=== PATIENT | female | born 1960 | race African-American/Black ===

== ENCOUNTER 2017-12-02 15:28 | Emergency (ER) | payer MEDICARE, MEDICAID ==
[~2017-12-02] VITALS: Ht 172.7 cm; Wt 81.0 kg
[2017-12-02] MEDS ORDERED: HALO5AMP3 IJ (15:37)
[2017-12-02] MEDS ORDERED: BENZ1TAB7 PO (15:37)
[2017-12-03 08:39] LABS: BASOPHILS % 0.5 % (0.0-2.0); EOSINOPHILS % 1.6 % (0.0-5.0); HEMATOCRIT. 40.8 % (36.0-48.0); HEMOGLOBIN. 13.2 g/dL (12.0-16.0); MEAN CORPUSCULAR HEMOGLOBIN 28.3 pg (28.0-32.0); MEAN CORPUSCULAR VOLUME 87.3 fL (81.0-99.0); MEAN PLATELET VOLUME 9.5 fl (7.4-10.4); MONOCYTES % 10.6 % (2.0-8.0); NEUTROPHILS % 68.3 % (40.0-76.0); PLATELET 248 x1000/uL (130-400); RED BLOOD CELL COUNT 4.67 mill/uL (4.2-5.4); RED CELL DISTRIBUTION WIDTH 14.8 % (11.6-14.6)
[2017-12-03 08:43] LABS: CHLORIDE 105 mEq/L (98-107)
[2017-12-03 08:46] LABS: CLARITY URINE CLEAR (CLEAR); COLOR URINE DARK YELLOW (YELLOW); KETONES URINE TRACE (NEGATIVE); LEUKOCYTE ESTERASE URINE NEGATIVE (NEGATIVE); NITRITE URINE NEGATIVE (NEGATIVE); OCCULT BLOOD URINE NEGATIVE (NEGATIVE); PROTEIN URINE TRACE (NEGATIVE); SPECIFIC GRAVITY URINE 1.029 (1.005-1.030)
[2017-12-03 12:05] VITALS: BP 129/54
== END 2017-12-03 13:28 | disposition home or self-care (01) ==
LOC: ER 15:28
DX: N39.0 Urinary tract infection, site not specified (principal); F31.9 Bipolar disorder, unspecified; F17.200 Nicotine dependence, unspecified, uncomplicated; Z59.0 Homelessness
CPT/HCPCS: 36415; 71045; 80053; 81001; 85025; 93005; 99285

== ENCOUNTER 2017-12-08 21:17 | Emergency (ER) | payer MEDICARE, MEDICAID ==
[~2017-12-08] VITALS: Ht 170.2 cm; Wt 104.0 kg
[~2017-12-08 21:17] MED LIST: BENZ1TAB7 PO; HALO5AMP3 IJ
[2017-12-09 00:36] VITALS: BP 149/76
== END 2017-12-09 02:08 | disposition home or self-care (01) ==
LOC: ER 21:59
DX: J06.9 Acute upper respiratory infection, unspecified (principal); F31.9 Bipolar disorder, unspecified; F17.210 Nicotine dependence, cigarettes, uncomplicated
CPT/HCPCS: 71045; 99283

== ENCOUNTER 2017-12-10 17:18 | Emergency (ER) | payer MEDICARE, MEDICAID | END 2017-12-10 19:06 | disposition left against medical advice (07) | LOC: ER 18:41 | DX: Z53.21 Procedure and treatment not carried out due to patient leaving prior to being seen by health care provider (principal) ==

== ENCOUNTER 2017-12-10 22:13 | Emergency (ER) | payer MEDICARE, MEDICAID ==
[~2017-12-10] VITALS: Ht 170.2 cm; Wt 105.0 kg
[2017-12-10 22:53] VITALS: BP 188/93
== END 2017-12-10 23:33 | disposition home or self-care (01) ==
LOC: ER 23:15
DX: R60.0 Localized edema (principal); F17.200 Nicotine dependence, unspecified, uncomplicated; F31.9 Bipolar disorder, unspecified; Z87.440 Personal history of urinary (tract) infections
CPT/HCPCS: 99281

== ENCOUNTER 2017-12-29 00:21 | Emergency (ER) | payer MEDICARE, MEDICAID ==
[~2017-12-29] VITALS: Ht 170.2 cm; Wt 105.0 kg
[2017-12-29 01:47] VITALS: BP 188/80
== END 2017-12-29 05:00 | disposition left against medical advice (07) ==
LOC: ER 00:21
DX: Z53.21 Procedure and treatment not carried out due to patient leaving prior to being seen by health care provider (principal); F31.9 Bipolar disorder, unspecified; F17.201 Nicotine dependence, unspecified, in remission; M19.90 Unspecified osteoarthritis, unspecified site

== ENCOUNTER 2017-12-30 01:33 | Emergency (ER) | payer MEDICARE, MEDICAID ==
[~2017-12-30] VITALS: Ht 170.2 cm; Wt 104.5 kg
[2017-12-30 02:17] VITALS: BP 156/76
== END 2017-12-30 05:15 | disposition left against medical advice (07) ==
LOC: ER 01:33
DX: M79.1 Myalgia (principal); Z53.21 Procedure and treatment not carried out due to patient leaving prior to being seen by health care provider

== ENCOUNTER 2018-01-07 23:00 | Emergency (ER) | payer MEDICARE, MEDICAID ==
[~2018-01-07] VITALS: Ht 170.2 cm; Wt 105.0 kg
[2018-01-08 02:46] LABS: BASOPHILS % 0.7 % (0.0-2.0); EOSINOPHILS % 1.5 % (0.0-5.0); HEMATOCRIT. 38.3 % (36.0-48.0); HEMOGLOBIN. 12.8 g/dL (12.0-16.0); LYMPHOCYTES % 31.2 % (20.0-50.0); MEAN CORPUSCULAR VOLUME 86.8 fL (81.0-99.0); MEAN PLATELET VOLUME 9.5 fl (7.4-10.4); NEUTROPHILS % 56.6 % (40.0-76.0); PLATELET 210 x1000/uL (130-400); RED BLOOD CELL COUNT 4.41 mill/uL (4.2-5.4); RED CELL DISTRIBUTION WIDTH 14.8 % (11.6-14.6)
[2018-01-08 02:52] LABS: CHLORIDE 110 mEq/L (98-107)
[2018-01-08 05:45] VITALS: BP 132/61
== END 2018-01-08 06:28 | disposition home or self-care (01) ==
LOC: ER 01-08 00:16
DX: M79.89 Other specified soft tissue disorders (principal); M25.562 Pain in left knee; F17.200 Nicotine dependence, unspecified, uncomplicated; Z59.0 Homelessness
CPT/HCPCS: 36415; 73610; 80048; 84550; 85025; 99285

== ENCOUNTER 2018-01-10 01:16 | Emergency (ER) | payer MEDICARE, MEDICAID ==
[~2018-01-10] VITALS: Ht 180.3 cm; Wt 98.0 kg
[2018-01-10 01:33] VITALS: BP 178/73
== END 2018-01-10 04:13 | disposition left against medical advice (07) ==
LOC: ER 01:16
DX: Z53.21 Procedure and treatment not carried out due to patient leaving prior to being seen by health care provider (principal)

== ENCOUNTER 2018-01-12 01:30 | Emergency (ER) | payer MEDICARE, MEDICAID ==
[~2018-01-12] VITALS: Ht 170.2 cm; Wt 121.8 kg
[2018-01-12 08:50] LABS: CHLORIDE 112 mEq/L (98-107)
[2018-01-12 10:36] VITALS: BP 135/63
== END 2018-01-12 10:40 | disposition home or self-care (01) ==
LOC: ER 01:30
DX: M79.642 Pain in left hand (principal); R03.0 Elevated blood-pressure reading, without diagnosis of hypertension; Z72.0 Tobacco use
CPT/HCPCS: 36415; 73130; 80048; 99285

== ENCOUNTER 2018-01-13 01:58 | Emergency (ER) | payer MEDICARE, MEDICAID | END 2018-01-13 06:36 | disposition left against medical advice (07) | LOC: ER 05:37 | DX: M25.473 Effusion, unspecified ankle (principal); Z53.21 Procedure and treatment not carried out due to patient leaving prior to being seen by health care provider ==

== ENCOUNTER 2018-01-13 23:10 | Emergency (ER) | payer MEDICARE, MEDICAID ==
[~2018-01-13] VITALS: Ht 170.2 cm; Wt 105.0 kg
[2018-01-14 00:07] VITALS: BP 136/63
== END 2018-01-14 09:11 | disposition left against medical advice (07) ==
LOC: ER 23:10
DX: M25.571 Pain in right ankle and joints of right foot (principal); M25.471 Effusion, right ankle; M25.472 Effusion, left ankle; F17.200 Nicotine dependence, unspecified, uncomplicated
CPT/HCPCS: 73610; 99284

== ENCOUNTER 2018-01-17 23:30 | Emergency (ER) | payer MEDICARE, MEDICAID ==
[~2018-01-17] VITALS: Ht 170.2 cm; Wt 105.0 kg
[2018-01-18 00:07] VITALS: BP 161/67
[2018-01-18] MEDS ORDERED: ACETAMINOPHEN 325MG TABLET PO ONE (00:15)
== END 2018-01-18 02:19 | disposition home or self-care (01) ==
LOC: ER 23:30
DX: M79.642 Pain in left hand (principal); F17.200 Nicotine dependence, unspecified, uncomplicated
CPT/HCPCS: 99281

== ENCOUNTER 2018-02-02 21:58 | Emergency (ER) | payer MEDICARE, MEDICAID | END 2018-02-02 22:25 | disposition left against medical advice (07) | LOC: ER 21:58 | DX: Z53.21 Procedure and treatment not carried out due to patient leaving prior to being seen by health care provider (principal) ==

== ENCOUNTER 2018-02-03 23:19 | Emergency (ER) | payer MEDICARE, MEDICAID ==
[~2018-02-03] VITALS: Ht 170.2 cm; Wt 104.0 kg
[2018-02-04] MEDS ORDERED: ACETAMINOPHEN 325MG TABLET PO ONE (06:15)
[2018-02-04 06:27] VITALS: BP 140/70
== END 2018-02-04 06:40 | disposition home or self-care (01) ==
LOC: ER 02-04 00:29
DX: R60.0 Localized edema (principal); E66.01 Morbid (severe) obesity due to excess calories; F17.200 Nicotine dependence, unspecified, uncomplicated
CPT/HCPCS: 99283

== ENCOUNTER 2018-02-10 22:33 | Emergency (ER) | payer MEDICARE, MEDICAID | END 2018-02-11 01:38 | disposition left against medical advice (07) | LOC: ER 22:33 | DX: M79.89 Other specified soft tissue disorders (principal); Z53.21 Procedure and treatment not carried out due to patient leaving prior to being seen by health care provider ==

== ENCOUNTER 2018-02-21 15:09 | Emergency (ER) | payer MEDICARE, MEDICAID ==
[~2018-02-21] VITALS: Ht 170.2 cm; Wt 113.0 kg
[2018-02-21 15:45] VITALS: BP 162/105
== END 2018-02-21 21:36 | disposition left against medical advice (07) ==
LOC: ER 16:00
DX: M79.89 Other specified soft tissue disorders (principal)
CPT/HCPCS: 99281

== ENCOUNTER 2018-02-23 20:30 | Emergency (ER) | payer MEDICARE, MEDICAID ==
[~2018-02-23] VITALS: Ht 170.2 cm; Wt 107.0 kg
[2018-02-23 21:23] VITALS: BP 159/76
== END 2018-02-23 23:00 | disposition left against medical advice (07) ==
LOC: ER 22:14
DX: Z53.21 Procedure and treatment not carried out due to patient leaving prior to being seen by health care provider (principal)

== ENCOUNTER 2018-04-06 19:58 | Emergency (ER) | payer MEDICARE, MEDICAID ==
[~2018-04-06] VITALS: Ht 170.2 cm; Wt 100.0 kg
[2018-04-06 20:03] VITALS: BP 154/87
== END 2018-04-06 21:10 | disposition left against medical advice (07) ==
LOC: ER 19:58
DX: R21 Rash and other nonspecific skin eruption (principal); Z53.21 Procedure and treatment not carried out due to patient leaving prior to being seen by health care provider

== ENCOUNTER 2018-04-21 02:00 | Emergency (ER) | payer MEDICARE, MEDICAID | END 2018-04-21 02:37 | disposition left against medical advice (07) | LOC: ER 02:29 | DX: R21 Rash and other nonspecific skin eruption (principal); Z53.21 Procedure and treatment not carried out due to patient leaving prior to being seen by health care provider ==

== ENCOUNTER 2018-04-23 02:30 | Emergency (ER) | payer MEDICARE, MEDICAID ==
[~2018-04-23] VITALS: Ht 170.2 cm; Wt 100.0 kg
[2018-04-23] MEDS ORDERED: PERMETHRIN 5% CREAM 60GM TOP ONE (05:30)
[2018-04-23 06:00] VITALS: BP 141/79
== END 2018-04-23 06:02 | disposition home or self-care (01) ==
LOC: ER 02:30
DX: B86 Scabies (principal); I10 Essential (primary) hypertension; F17.200 Nicotine dependence, unspecified, uncomplicated
CPT/HCPCS: 99283

== ENCOUNTER 2018-04-25 00:46 | Emergency (ER) | payer MEDICARE, MEDICAID ==
[~2018-04-25] VITALS: Ht 170.2 cm; Wt 100.0 kg
[2018-04-25 00:58] VITALS: BP 159/72
== END 2018-04-25 01:10 | disposition left against medical advice (07) ==
LOC: ER 00:46
DX: R21 Rash and other nonspecific skin eruption (principal); F17.200 Nicotine dependence, unspecified, uncomplicated; Z53.21 Procedure and treatment not carried out due to patient leaving prior to being seen by health care provider

== ENCOUNTER 2018-05-14 10:45 | Emergency (ER) | payer MEDICARE, MEDICAID ==
[~2018-05-14] VITALS: Ht 170.2 cm; Wt 100.0 kg
[2018-05-14] MEDS ORDERED: PERMETHRIN 5% CREAM 60GM TOP ONE (13:00)
[2018-05-14] MEDS ORDERED: DIPHENHYDRAMINE 25MG CAPSULE PO ONE (13:00)
[2018-05-14 13:24] VITALS: BP 135/75
== END 2018-05-14 13:26 | disposition home or self-care (01) ==
LOC: ER 12:36
DX: B86 Scabies (principal); F17.200 Nicotine dependence, unspecified, uncomplicated
CPT/HCPCS: 99283; Q0163

== ENCOUNTER 2018-05-17 00:40 | Emergency (ER) | payer MEDICARE, MEDICAID ==
[~2018-05-17] VITALS: Ht 170.2 cm; Wt 100.0 kg
[2018-05-17 00:42] VITALS: BP 146/75
== END 2018-05-17 08:11 | disposition left against medical advice (07) ==
LOC: ER 00:40
DX: Z53.21 Procedure and treatment not carried out due to patient leaving prior to being seen by health care provider (principal)

== ENCOUNTER 2018-06-09 01:51 | Emergency (ER) | payer MEDICARE, MEDICAID ==
[~2018-06-09] VITALS: Ht 170.2 cm; Wt 108.0 kg
[2018-06-09 01:56] VITALS: BP 0/0
== END 2018-06-09 03:06 | disposition left against medical advice (07) ==
LOC: ER 01:51
DX: Z53.21 Procedure and treatment not carried out due to patient leaving prior to being seen by health care provider (principal)

== ENCOUNTER 2018-07-16 05:01 | Emergency (ER) | payer MEDICARE, MEDICAID ==
[~2018-07-16] VITALS: Ht 170.2 cm; Wt 91.0 kg
[2018-07-16 05:25] VITALS: BP 164/74
== END 2018-07-16 07:10 | disposition left against medical advice (07) ==
LOC: ER 05:01
DX: B99.8 Other infectious disease (principal); J45.909 Unspecified asthma, uncomplicated; F17.200 Nicotine dependence, unspecified, uncomplicated; Z53.21 Procedure and treatment not carried out due to patient leaving prior to being seen by health care provider

== ENCOUNTER 2019-01-19 13:05 | Emergency (ER) | payer MEDICARE, MEDICAID | END 2019-01-19 15:41 | disposition left against medical advice (07) | LOC: ER 13:05 | DX: Z53.21 Procedure and treatment not carried out due to patient leaving prior to being seen by health care provider (principal) ==

== ENCOUNTER 2019-01-27 23:43 | Emergency (ER) | payer MEDICARE, MEDICAID ==
[~2019-01-27] VITALS: Ht 170.2 cm; Wt 91.0 kg
[2019-01-28] MEDS ORDERED: IPRATROPIUM/ALBUTEROL 0.5-3(2.5)MG/3ML NEB HHN ONE (01:45)
[2019-01-28 02:45] LABS: BASOPHILS % 0.3 % (0.0-2.0); EOSINOPHILS % 2.3 % (0.0-5.0); HEMATOCRIT. 37.3 % (36.0-48.0); HEMOGLOBIN. 12.6 g/dL (12.0-16.0); LYMPHOCYTES % 27.4 % (20.0-50.0); MEAN CORPUSCULAR HEMOGLOBIN 29.9 pg (28.0-32.0); MEAN CORPUSCULAR VOLUME 88.5 fL (81.0-99.0); MEAN PLATELET VOLUME 8.2 fl (7.4-10.4); MONOCYTES % 9.9 % (2.0-8.0); NEUTROPHILS % 60.1 % (40.0-76.0); PLATELET 261 x1000/uL (130-400); RED BLOOD CELL COUNT 4.22 mill/uL (4.2-5.4); RED CELL DISTRIBUTION WIDTH 15.4 % (11.6-14.6)
[2019-01-28 02:51] LABS: CHLORIDE 108 mEq/L (98-107)
[2019-01-28 03:37] LABS: INR 0.9; PROTHROMBIN TIME 9.8 sec (9.6-11.0)
[2019-01-28] MEDS ORDERED: ALBUTEROL (0.083%) 2.5MG/3ML NEB HHN ONE (11:00)
[2019-01-28] MEDS ORDERED: ACETAMINOPHEN 325MG TABLET PO ONE (11:00)
[2019-01-28] MEDS ORDERED: IPRATROPIUM BROMIDE (0.02%) 0.5MG/2.5ML NEB HHN ONE (11:00)
[2019-01-28] MEDS ORDERED: IBUPROFEN 600MG TABLET PO ONE (13:30)
[2019-01-28 14:08] VITALS: BP 120/51
== END 2019-01-28 05:00 | disposition home or self-care (01) ==
LOC: ER 23:43
DX: R05 Cough (principal); J06.9 Acute upper respiratory infection, unspecified; F31.9 Bipolar disorder, unspecified; F17.200 Nicotine dependence, unspecified, uncomplicated; Z59.0 Homelessness; Z98.51 Tubal ligation status; Z79.899 Other long term (current) drug therapy
CPT/HCPCS: 36415; 71045; 80053; 85025; 85610; 93005; 94640; 99284; J7611; J7620

== ENCOUNTER 2019-01-31 20:20 | Emergency (ER) | payer MEDICARE, MEDICAID ==
[~2019-01-31] VITALS: Ht 170.2 cm; Wt 93.0 kg
[2019-01-31 23:42] VITALS: BP 145/72
== END 2019-01-31 23:47 | disposition home or self-care (01) ==
LOC: ER 20:20
DX: M54.5 Low back pain (principal); R32 Unspecified urinary incontinence; F31.9 Bipolar disorder, unspecified; F17.210 Nicotine dependence, cigarettes, uncomplicated; Z98.51 Tubal ligation status
CPT/HCPCS: 99283

== ENCOUNTER 2019-02-07 22:39 | Emergency (ER) | payer MEDICARE, MEDICAID | END 2019-02-07 23:19 | disposition left against medical advice (07) | LOC: ER 22:39 | DX: Z53.21 Procedure and treatment not carried out due to patient leaving prior to being seen by health care provider (principal) ==

== ENCOUNTER 2019-02-08 13:12 | Emergency (ER) | payer MEDICARE, MEDICAID ==
[~2019-02-08] VITALS: Ht 172.7 cm; Wt 83.0 kg
[2019-02-08] MEDS ORDERED: IPRATROPIUM BROMIDE (0.02%) 0.5MG/2.5ML NEB HHN STA (13:42)
[2019-02-08] MEDS ORDERED: PREDNISONE 20MG TABLET PO STA (13:42)
[2019-02-08] MEDS ORDERED: ALBUTEROL (0.083%) 2.5MG/3ML NEB HHN STA (13:42)
[2019-02-08 15:09] VITALS: BP 160/82
== END 2019-02-08 15:10 | disposition home or self-care (01) ==
LOC: ER 13:12
DX: J20.9 Acute bronchitis, unspecified (principal); F31.9 Bipolar disorder, unspecified; Z98.51 Tubal ligation status; Z79.899 Other long term (current) drug therapy
CPT/HCPCS: 71045; 94640; 99283; J7512; J7611

== ENCOUNTER 2019-02-09 22:19 | Emergency (ER) | payer MEDICARE, MEDICAID ==
[~2019-02-09] VITALS: Ht 170.2 cm; Wt 89.0 kg
[2019-02-09] MEDS ORDERED: KETOROLAC 60MG/2ML VIAL IM ONE (23:15)
[2019-02-09 23:20] VITALS: BP 136/75
== END 2019-02-09 23:21 | disposition home or self-care (01) ==
LOC: ER 22:19
DX: M17.11 Unilateral primary osteoarthritis, right knee (principal); F17.200 Nicotine dependence, unspecified, uncomplicated
CPT/HCPCS: 96372; 99283; J1885

== ENCOUNTER 2019-02-12 23:53 | Emergency (ER) | payer MEDICARE, MEDICAID ==
[~2019-02-12] VITALS: Ht 170.2 cm; Wt 96.4 kg
[2019-02-13 02:08] VITALS: BP 131/77
== END 2019-02-13 06:44 | disposition left against medical advice (07) ==
LOC: ER 23:53
DX: R10.9 Unspecified abdominal pain (principal); Z53.21 Procedure and treatment not carried out due to patient leaving prior to being seen by health care provider

== ENCOUNTER 2019-02-15 03:22 | Emergency (ER) | payer MEDICARE, MEDICAID ==
[~2019-02-15] VITALS: Ht 170.2 cm; Wt 96.0 kg
[2019-02-15 03:47] VITALS: BP 149/77
[2019-02-15] MEDS ORDERED: ACETAMINOPHEN 500MG TABLET PO ONE (04:15)
== END 2019-02-15 05:37 | disposition home or self-care (01) ==
LOC: ER 03:22
DX: J06.9 Acute upper respiratory infection, unspecified (principal); F17.200 Nicotine dependence, unspecified, uncomplicated; Z79.899 Other long term (current) drug therapy
CPT/HCPCS: 87070; 87430; 99283

== ENCOUNTER 2019-04-27 13:15 | Emergency (ER) | payer MEDICARE, MEDICAID | END 2019-04-27 14:15 | disposition left against medical advice (07) | LOC: ER 13:15 | DX: Z53.21 Procedure and treatment not carried out due to patient leaving prior to being seen by health care provider (principal) ==